=== PATIENT | male | born 1940 | race Caucasian/White ===

== ENCOUNTER 2017-04-07 17:19 | Emergency (ER) | payer MEDICARE ==
[2017-04-07] MEDS: NITROGLYCERIN 0.4 MG SUBL TABLET SL (18:24)
[2017-04-07] MEDS: ASPIRIN 81 MG CHEW TABLET PO (19:25)
[2017-04-07 19:43] LABS: BASO # 0.1 10^3/uL (0.0-0.2); BASO % 0.6 % (0.0-1.0); EOS # 0.3 10^3/uL (0.0-0.50); EOS % 3.1 % (0.0-3.0); HEMATOCRIT 37.8 % (42.0-52.0); HEMOGLOBIN 12.8 g/dl (14.0-18.0); IMMATURE GRANULOCYTE % 0.2 % (0-3.0); LYMPH # 1.9 10^3/uL (1.5-4.5); LYMPH % 20.5 % (24.0-44.0); MEAN CORPUSCULAR HEMOGLOBIN 30.4 pg (27.0-33.0); MEAN CORPUSCULAR HGB CONC 33.9 g/dl (32.0-36.5); MEAN CORPUSCULAR VOLUME 89.8 fl (80.0-96.0); MONO # 0.7 10^3/uL (0.0-0.8); MONO % 7.1 % (0.0-5.0); NEUTROPHILS # 6.5 10^3/uL (1.8-7.7); NEUTROPHILS % 68.5 % (36.0-66.0); PLATELET COUNT, AUTOMATED 268 10^3/uL (150-450); RED BLOOD COUNT 4.21 10^6/uL (4.30-6.10); RED CELL DISTRIBUTION WIDTH 11.9 % (11.5-14.5); WHITE BLOOD COUNT 9.5 10^3/uL (4.0-10.0)
[2017-04-07 20:02] LABS: PROTHROMBIN TIME 13.3 SECONDS (12.4-14.5)
[2017-04-07 20:06] LABS: ALBUMIN 4.3 GM/DL (3.2-5.2); ALBUMIN/GLOBULIN RATIO 1.39 (1.00-1.93); ALKALINE PHOSPHATASE 81 U/L (45-117); ALT/SGPT 28 U/L (12-78); ANION GAP 10 MEQ/L (8-16); AST/SGOT 22 U/L (7-37); BILIRUBIN,DIRECT 0.1 MG/DL (0.0-0.2); BILIRUBIN,TOTAL 0.5 MG/DL (0.2-1.0); BLOOD UREA NITROGEN 22 MG/DL (7-18); CALCIUM LEVEL 8.5 MG/DL (8.8-10.2); CARBON DIOXIDE LEVEL 29 MEQ/L (21-32); CHLORIDE LEVEL 102 MEQ/L (98-107); CPK CREATINE PHOSPHOKINASE 85 U/L (39-308); CREATININE FOR GFR 1.07 MG/DL (0.70-1.30); GLOMERULAR FILTRATION RATE > 60.0 (>42); GLUCOSE, FASTING 97 MG/DL (70-100); LIPASE 175 U/L (73-393); MAGNESIUM LEVEL 2.1 MG/DL (1.8-2.4); PHOSPHORUS LEVEL 3.2 MG/DL (2.5-4.9); POTASSIUM SERUM 4.2 MEQ/L (3.5-5.1); SODIUM LEVEL 141 MEQ/L (136-145); TOTAL PROTEIN 7.4 GM/DL (6.4-8.2); TROPONIN I < 0.02 NG/ML (< 0.10)
[2017-04-07 20:11] LABS: FREE T4 1.16 NG/DL (0.76-1.46); MB/CK RELATIVE INDEX 1.17 (< OR =4); THYROID STIMULATING HORMONE 0.473 uIU/ML (0.358-3.740)
[2017-04-07] MEDS ORDERED: ISOVUE-370 76% 100ML VIAL (Q9967) As Ordered (20:41)
[2017-04-07] MEDS: IBUPROFEN 600 MG TAB PO (22:38)
[2017-04-08 00:17] LABS: CPK CREATINE PHOSPHOKINASE 78 U/L (39-308); MB/CK RELATIVE INDEX 1.28 (< OR =4); TROPONIN I < 0.02 NG/ML (< 0.10)
== END 2017-04-08 01:13 | disposition home or self-care (01) ==
LOC: M ED 04-08 01:13
DX: M79.602 Pain in left arm (principal); I10 Essential (primary) hypertension; K21.9 Gastro-esophageal reflux disease without esophagitis; E07.9 Disorder of thyroid, unspecified; Z79.899 Other long term (current) drug therapy; Z87.09 Personal history of other diseases of the respiratory system
CPT/HCPCS: Q9967

== ENCOUNTER → 2018-04-01 | Outpatient (REF) | payer MEDICARE ==
[~2018-04-01] MED LIST: ALBU83IN NEB; AMIT25TA PO; ASPI1TAB21 PO; ATOR1TAB21 PO; COSO1SOL3; FINA5TAB2; FOSI20TA3 PO; HYDR12.55 PO; LISI-538 PO; METO1TAB7; METO200T28 PO; OMEP-218; OMEP40CA2 PO
[2018-04-01 18:45] LABS: APPEARANCE, URINE CLEAR (CLEAR); BACTERIA, URINE AUTO NEGATIVE (NEGATIVE); BILIRUBIN, URINE AUTO NEGATIVE (NEGATIVE); BLOOD, URINE BLOOD NEGATIVE (NEGATIVE); COLOR, URINE YELLOW (YELLOW); GLUCOSE, URINE (UA) AUTO NEGATIVE (NEGATIVE); KETONE, URINE AUTO NEGATIVE (NEGATIVE); LEUKOCYTE ESTERASE, URINE AUTO NEGATIVE (NEGATIVE); NITRITE, URINE AUTO NEGATIVE (NEGATIVE); PROTEIN, URINE AUTO NEGATIVE (NEGATIVE); RBC, URINE AUTO 0 /HPF (0-3); SPECIFIC GRAVITY URINE AUTO 1.013 (1.002-1.035); SQUAMOUS EPITHELIAL CELL UR AU 0 /HPF (0-6); UROBILINOGEN, URINE AUTO 0.2 mg/dL (0.0-2.0); WBC, URINE AUTO 1 /HPF (0-3)
== END ==
LOC: M SMT 17:24
PROVIDERS: ATTEND Nurse Practitioner Women's Health
DX: N40.0 Benign prostatic hyperplasia without lower urinary tract symptoms (principal)
CPT/HCPCS: 51798; 81001; 87086; G0463

== ENCOUNTER 2018-04-22 05:00 | Emergency (ER) | payer MEDICARE ==
[~2018-04-22] VITALS: Ht 167.6 cm; Wt 84.1 kg
[~2018-04-22 05:00] MED LIST changes: -ALBU83IN NEB; -ASPI1TAB21 PO; -COSO1SOL3; -FINA5TAB2; -FOSI20TA3 PO; -METO1TAB7; -OMEP-218
[2018-04-22] MEDS ORDERED: FOSI20TA3 PO (05:12)
[2018-04-22] MEDS ORDERED: COSO1SOL3 (05:12)
[2018-04-22] MEDS ORDERED: FINA5TAB2 (05:12)
[2018-04-22] MEDS ORDERED: OMEP-218 (05:12)
[2018-04-22] MEDS ORDERED: METO1TAB7 (05:12)
[2018-04-22] MEDS ORDERED: ASPI1TAB21 PO (05:14)
[2018-04-22] MEDS ORDERED: ALBU83IN NEB (06:00)
[2018-04-22 06:34] LABS: BASO # 0.1 10^3/uL (0.0-0.2); BASO % 0.9 % (0.0-1.0); EOS # 0.4 10^3/uL (0.0-0.50); EOS % 4.7 % (0.0-3.0); HEMATOCRIT 40.1 % (42.0-52.0); HEMOGLOBIN 13.2 g/dl (13.5-17.5); LYMPH # 1.6 10^3/uL (1.5-4.5); LYMPH % 19.5 % (24.0-44.0); MEAN CORPUSCULAR HEMOGLOBIN 30.6 pg (27.0-33.0); MEAN CORPUSCULAR HGB CONC 32.9 g/dl (32.0-36.5); MONO # 0.5 10^3/uL (0.0-0.8); MONO % 6.5 % (0.0-5.0); NEUTROPHILS # 5.4 10^3/uL (1.8-7.7); PLATELET COUNT, AUTOMATED 316 10^3/uL (150-450); RED BLOOD COUNT 4.31 10^6/uL (4.30-6.10); WHITE BLOOD COUNT 7.9 10^3/uL (4.0-10.0)
--- NOTE | 2018-04-22 06:34 | ECGEPIP ---
Stationary ECG Study [facility] - ED Test Date: 2018-04-22 Pat Name: SRI DUTTA Department: Room: - Gender: M [employer]er: KEILY : 1940 Requested By: MARISA Delaney PA-C Order Number: [id number] Reading MD: Alexx Vilchis Measurements Intervals [place] Rate: 58 P: 12 [place]: 163 QRS: -39 QRSD: 98 T: 30 QT: 429 QTc: 421 Interpretive Statements SINUS BRADYCARDIA MARKED LEFT AXIS DEVIATION INCOMPLETE RIGHT BUNDLE BRANCH BLOCK NONSPECIFIC ST T WAVE CHANGES CW 04/07/[address] T WAVE CHANGES Electronically Signed On 04-22-2018 6:34:25 EST by Alexx Vilchis
[2018-04-22 06:47] LABS: BLOOD UREA NITROGEN 15 MG/DL (7-18); CALCIUM LEVEL 8.3 MG/DL (8.8-10.2); CARBON DIOXIDE LEVEL 26 MEQ/L (21-32); CHLORIDE LEVEL 109 MEQ/L (98-107); CPK CREATINE PHOSPHOKINASE 103 U/L (39-308); CREATININE FOR GFR 1.08 MG/DL (0.70-1.30); FREE T4 1.11 NG/DL (0.76-1.46); GLOMERULAR FILTRATION RATE > 60.0 (>42); GLUCOSE, FASTING 104 MG/DL (70-100); MAGNESIUM LEVEL 2.1 MG/DL (1.8-2.4); MB/CK RELATIVE INDEX 1.55 (< OR =4); POTASSIUM SERUM 4.3 MEQ/L (3.5-5.1); SODIUM LEVEL 143 MEQ/L (136-145); TROPONIN I < 0.02 NG/ML (< 0.10)
--- NOTE | 2018-04-22 06:49 | REPVR ---
EXAM: CT Head Without Contrast EXAM DATE/TIME: 04/22/2018 6:35 AM CLINICAL HISTORY: 78 years old, male; Signs and symptoms; Other: Tremors; Additional info: Intermittent tremors TECHNIQUE: Axial computed tomography images of the head/brain without contrast. All CT scans at this facility use at least one of these dose optimization techniques: automated exposure control; mA and/or kV adjustment per patient size (includes targeted exams where dose is matched to clinical indication); or iterative reconstruction. COMPARISON: MRI-Brain without Contrast 12/20/2015 2:49 PM FINDINGS: Brain: There is no acute intracranial abnormality. Mild prominence of ventricles and sulci representing volume loss. Mild small vessel ischemic changes are seen. There is no mass, midline shift, or mass effect. Rai-white matter differentiation is preserved. There is no evidence of hemorrhage. There is no extra-axial fluid collection. Basal cisterns are patent. 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 Ventricles: See Brain Finding. Bones/joints: The visualized osseous structures are unremarkable. Sinuses: Mild mucosal thickening of ethmoidal air cells. Mastoid air cells: Mastoid air cells are clear. Soft tissues: Unremarkable. IMPRESSION: 1. Mild volume loss and small vessel ischemic changes. . 2. No acute intracranial abnormality. Electronically signed by: Irasema Sapp On 04/22/2018 06:49:01 AM
[2018-04-22 07:01] VITALS: BP 153/72
[2018-04-22 07:04] LABS: INFLUENZA A AMPLIFICATION NEGATIVE (NEGATIVE); INFLUENZA B AMPLIFICATION NEGATIVE (NEGATIVE)
--- NOTE | 2018-04-22 07:09 | REP ---
Clinical: Chest palpitations. Comparison: 04/07/2017. Findings: The mediastinum and cardiac silhouette are stable and within normal limits for portable technique. The lung matos are clear without acute consolidation, effusion, or pneumothorax. Skeletal structures are intact. Impression: No acute cardiopulmonary process appreciated. Electronically Signed by Myron Willson MD 04/22/2018 07:00 A
== END 2018-04-22 07:22 | disposition home or self-care (01) ==
LOC: M ED 05:00
DX: R25.1 Tremor, unspecified (principal); R51 Headache; R00.1 Bradycardia, unspecified; I45.10 Unspecified right bundle-branch block; I67.82 Cerebral ischemia; I10 Essential (primary) hypertension; E78.5 Hyperlipidemia, unspecified; F32.9 Major depressive disorder, single episode, unspecified; K21.9 Gastro-esophageal reflux disease without esophagitis; J47.9 Bronchiectasis, uncomplicated; Z79.899 Other long term (current) drug therapy; Z79.82 Long term (current) use of aspirin

== ENCOUNTER → 2018-05-16 | Outpatient (REF) | payer MEDICARE ==
[~2018-05-16] MED LIST changes: +ALBU83IN NEB; +ASPI1TAB21 PO; +COSO1SOL3; +FINA5TAB2; +FOSI20TA3 PO; +METO1TAB7; +OMEP-218
[2018-05-17 18:05] LABS: CA19-9 TUMOR MARKER,CARBOHYDRA 7.1 U/ML (<35.0)
== END ==
LOC: M LAB REF 12:23
PROVIDERS: ATTEND Nurse Practitioner Adult Health
DX: R61 Generalized hyperhidrosis (principal); E03.9 Hypothyroidism, unspecified

== ENCOUNTER → 2018-05-20 | Outpatient (REF) | payer MEDICARE ==
[2018-05-24 00:06] LABS: DOPAMINE TOTAL URINE 170 ug/L (Undefined); EPINEPHRINE TOTAL URINE 4 ug/L (Undefined); METANEPHRINE TOTAL URINE 114 ug/L (Undefined); NOREPINEPHRINE TOTAL URINE 47 ug/L (Undefined); NORMETANEPHRINE TOTAL URINE 291 ug/L (Undefined)
== END ==
LOC: M LAB REF 11:33
PROVIDERS: ATTEND Nurse Practitioner Adult Health
DX: I10 Essential (primary) hypertension (principal)

== ENCOUNTER → 2018-06-10 | Outpatient (REF) | payer MEDICARE ==
[~2018-06-10] MED LIST changes: -FOSI20TA3 PO; +FOSI20TA60 PO
== END ==
LOC: M LAB REF 12:12
PROVIDERS: ATTEND Nurse Practitioner Adult Health
DX: E03.9 Hypothyroidism, unspecified (principal)

== ENCOUNTER → 2018-06-27 | Outpatient (REF) | payer MEDICARE ==
[2018-06-27 13:29] LABS: BASO # 0.1 10^3/uL (0.0-0.2); BASO % 0.6 % (0.0-1.0); EOS # 0.3 10^3/uL (0.0-0.50); EOS % 3.7 % (0.0-3.0); HEMATOCRIT 38.3 % (42.0-52.0); HEMOGLOBIN 12.4 g/dl (13.5-17.5); LYMPH # 1.6 10^3/uL (1.5-4.5); MEAN CORPUSCULAR HEMOGLOBIN 30.8 pg (27.0-33.0); MEAN CORPUSCULAR HGB CONC 32.4 g/dl (32.0-36.5); MEAN CORPUSCULAR VOLUME 95.3 fl (80.0-96.0); MONO # 0.7 10^3/uL (0.0-0.8); MONO % 8.3 % (0.0-5.0); NEUTROPHILS # 5.3 10^3/uL (1.8-7.7); PLATELET COUNT, AUTOMATED 312 10^3/uL (150-450); RED BLOOD COUNT 4.02 10^6/uL (4.30-6.10); WHITE BLOOD COUNT 7.9 10^3/uL (4.0-10.0)
[2018-06-27 13:41] LABS: ALBUMIN 4.1 GM/DL (3.2-5.2); ALT/SGPT 29 U/L (12-78); BILIRUBIN,TOTAL 0.6 MG/DL (0.2-1.0); BLOOD UREA NITROGEN 21 MG/DL (7-18); CALCIUM LEVEL 8.7 MG/DL (8.8-10.2); CARBON DIOXIDE LEVEL 29 MEQ/L (21-32); CHLORIDE LEVEL 102 MEQ/L (98-107); CREATININE FOR GFR 0.97 MG/DL (0.70-1.30); FOLATE 21.4 NG/ML; GLOMERULAR FILTRATION RATE > 60.0 (>42); GLUCOSE, FASTING 95 MG/DL (70-100); RHEUMATOID FACTOR QUANT < 10.0 IU/ML (<15.0); SODIUM LEVEL 138 MEQ/L (136-145); THYROID STIMULATING HORMONE 0.318 uIU/ML (0.358-3.740); TOTAL PROTEIN 7.1 GM/DL (6.4-8.2); VITAMIN B12 LEVEL 357 PG/ML
[2018-06-27 14:07] LABS: ERYTHROCYTE SEDIMENTATION RATE 21 mm/hr (0-20)
[2018-06-27 14:42] LABS: HEMOGLOBIN A1c 6.6 %
[2018-07-02 00:06] LABS: CERULOPLASMIN 21.2 mg/dL (16.0-31.0); VITAMIN B1 LEVEL WHOLE BLOOD 115.1 nmol/L (66.5-200.0)
[2018-07-02 10:45] LABS: ALBUMIN % 57.7 % (55.8-66.1); ALPHA-1-GLOBULIN % 4.6 % (2.9-4.9); ALPHA-1-GLOBULINS 0.33 GM/DL (0.17-0.41); ALPHA-2-GLOBULINS % 12.2 % (7.1-11.8); BETA-1-GLOBULINS % 6.4 % (4.7-7.2); BETA-2-GLOBULINS % 6.1 % (3.2-6.5)
[2018-07-02 10:46] LABS: ALPHA-2-GLOBULINS 0.87 GM/DL (0.42-0.99); BETA-1-GLOBULINS 0.45 GM/DL (0.28-0.60); BETA-2-GLOBULINS 0.43 GM/DL (0.19-0.55); GAMMA GLOBULINS 0.92 GM/DL (0.65-1.58)
[2018-07-02 11:43] LABS: DRVV SCREEN 36.6 SEC
[2018-07-02 11:50] LABS: PTT LUPUS TYPE ANTICOAG SCREEN 0.9 (0-1.2)
[2018-07-02 14:16] LABS: ANCA-ATYPICAL <1:20 titer (Neg:<1:20); ANTINUCLEAR ANTIBODIES DIRECT Negative (Negative); COPPER PLASMA 94 ug/dL (72-166); CYTOPLASMIC NEUTROP AB ANCA-C <1:20 titer (Neg:<1:20); LEAD BLOOD ADULT <1 ug/dL (0-4); MERCURY LEVEL None Detected ug/L (0.0-14.9); PERINUCLEAR AB ANCA-P <1:20 titer (Neg:<1:20); SJOGREN'S ANTI SS-A <0.2 AI (0.0-0.9); SJOGREN'S ANTI SS-B <0.2 AI (0.0-0.9)
[2018-07-04 14:14] LABS: ANTI DS-DNA AB <1:10 titer (.); VITAMIN E(GAMMA TOCOPHEROL) 0.6 mg/L (0.5-4.9)
== END ==
LOC: M LABNEURO 09:28
PROVIDERS: ATTEND Psychiatry & Neurology Neurology
DX: R25.1 Tremor, unspecified (principal); G62.9 Polyneuropathy, unspecified

== ENCOUNTER → 2019-04-14 | Outpatient (REF) | payer MEDICARE ==
[~2019-04-14] MED LIST changes: -ASPI1TAB21 PO; +ASPI325T58 PO; -OMEP40CA2 PO; +OMEP40CA97 PO
[2019-04-14 14:14] LABS: APPEARANCE, URINE CLEAR (CLEAR); BACTERIA, URINE AUTO NEGATIVE (NEGATIVE); BILIRUBIN, URINE AUTO NEGATIVE (NEGATIVE); BLOOD, URINE BLOOD NEGATIVE (NEGATIVE); COLOR, URINE YELLOW (YELLOW); GLUCOSE, URINE (UA) AUTO NEGATIVE (NEGATIVE); KETONE, URINE AUTO NEGATIVE (NEGATIVE); LEUKOCYTE ESTERASE, URINE AUTO NEGATIVE (NEGATIVE); NITRITE, URINE AUTO NEGATIVE (NEGATIVE); PROTEIN, URINE AUTO NEGATIVE (NEGATIVE); RBC, URINE AUTO 0 /HPF (0-3); SPECIFIC GRAVITY URINE AUTO 1.015 (1.002-1.035); SQUAMOUS EPITHELIAL CELL UR AU 0 /HPF (0-6); UROBILINOGEN, URINE AUTO 0.2 mg/dL (0.0-2.0); WBC, URINE AUTO 0 /HPF (0-3)
== END ==
LOC: M SMT 13:20
PROVIDERS: ATTEND Nurse Practitioner Women's Health
DX: R10.2 Pelvic and perineal pain (principal)
CPT/HCPCS: 81001; 87086; G0463

== ENCOUNTER → 2019-10-13 | Outpatient (REF) | payer MEDICARE ==
[2019-10-13 18:58] LABS: FOLATE 13.6 NG/ML; VITAMIN B12 LEVEL 373 PG/ML
== END ==
LOC: M LAB REF 17:25
PROVIDERS: ATTEND Internal Medicine
DX: R41.3 Other amnesia (principal)

== ENCOUNTER → 2020-01-14 | Outpatient (REF) | payer MEDICARE ==
[2020-01-14 13:51] LABS: APPEARANCE, URINE CLEAR (CLEAR); BACTERIA, URINE AUTO NEGATIVE (NEGATIVE); BILIRUBIN, URINE AUTO NEGATIVE (NEGATIVE); BLOOD, URINE BLOOD NEGATIVE (NEGATIVE); COLOR, URINE YELLOW (YELLOW); GLUCOSE, URINE (UA) AUTO NEGATIVE (NEGATIVE); KETONE, URINE AUTO NEGATIVE (NEGATIVE); LEUKOCYTE ESTERASE, URINE AUTO NEGATIVE (NEGATIVE); MUCUS, URINE SMALL (NEGATIVE); NITRITE, URINE AUTO NEGATIVE (NEGATIVE); PROTEIN, URINE AUTO NEGATIVE (NEGATIVE); RBC, URINE AUTO 0 /HPF (0-3); SPECIFIC GRAVITY URINE AUTO 1.014 (1.002-1.035); SQUAMOUS EPITHELIAL CELL UR AU 0 /HPF (0-6); UROBILINOGEN, URINE AUTO 0.2 mg/dL (0.0-2.0); WBC, URINE AUTO 0 /HPF (0-3)
== END ==
LOC: M SMT 12:51
PROVIDERS: ATTEND Nurse Practitioner Women's Health
DX: R35.0 Frequency of micturition (principal)
CPT/HCPCS: 51798; 81001; 87086; G0463

== ENCOUNTER → 2020-10-13 | Outpatient (REF) | payer MEDICARE ==
[~2020-10-13] MED LIST changes: -AMIT25TA PO; +AMIT25TA17 PO; -LISI-538 PO; +LISI20TA33 PO; +OMEP40CA4 PO; -OMEP40CA97 PO
[2020-10-13 18:04] LABS: TOTAL PROTEIN 7.3 GM/DL (6.4-8.2)
[2020-10-13 18:12] LABS: VITAMIN B12 LEVEL 353 PG/ML (247-911)
[2020-10-14 10:27] LABS: ALBUMIN 4.37 GM/DL (3.29-5.55); ALBUMIN % 59.8 % (55.8-66.1); ALPHA-1-GLOBULIN % 4.3 % (2.9-4.9); ALPHA-1-GLOBULINS 0.31 GM/DL (0.17-0.41); ALPHA-2-GLOBULINS 0.85 GM/DL (0.42-0.99); ALPHA-2-GLOBULINS % 11.7 % (7.1-11.8); BETA-1-GLOBULINS 0.42 GM/DL (0.28-0.60); BETA-1-GLOBULINS % 5.8 % (4.7-7.2); BETA-2-GLOBULINS 0.39 GM/DL (0.19-0.55); BETA-2-GLOBULINS % 5.3 % (3.2-6.5); GAMMA GLOBULIN % 13.1 % (11.1-18.8); GAMMA GLOBULINS 0.96 GM/DL (0.65-1.58)
== END ==
LOC: M LAB REF 16:44
PROVIDERS: ATTEND Internal Medicine
DX: G60.9 Hereditary and idiopathic neuropathy, unspecified (principal)

== ENCOUNTER → 2021-07-05 | Outpatient (REF) | payer MEDICARE ==
[~2021-07-05] MED LIST changes: +OMEP-173; -OMEP-218
== END ==
LOC: M LAB REF 12:46
PROVIDERS: ATTEND Internal Medicine
DX: R26.89 Other abnormalities of gait and mobility (principal)

== ENCOUNTER → 2021-07-28 | Outpatient (CLI) | payer MEDICARE ==
[~2021-07-28] MED LIST changes: +ALBU2.5V10 NEB; -ALBU83IN NEB
== END ==
LOC: M EKG 09:46
PROVIDERS: ATTEND Internal Medicine
DX: R00.2 Palpitations (principal)

== ENCOUNTER → 2022-03-09 | Outpatient (CLI) | payer MEDICARE | LOC: M WUC 10:50 | PROVIDERS: ATTEND Physician Assistant Medical | DX: R05.9 Cough, unspecified (principal) ==

== ENCOUNTER 2022-10-01 18:40 | Emergency (ER) | payer MEDICARE ==
[~2022-10-01] VITALS: Ht 167.6 cm; Wt 85.2 kg
[~2022-10-01 18:40] MED LIST changes: -AMIT25TA17 PO; +AMIT25TA19 PO; -COSO1SOL3; +DORZ10DR10; -METO1TAB7; +METO1TAB7 PO
[2022-10-01] MEDS ORDERED: ESOM40CA35 (18:56)
[2022-10-01] MEDS ORDERED: TRAZ1TAB11 (18:56)
[2022-10-01] MEDS ORDERED: CHLO125TA PO (18:56)
[2022-10-01] MEDS ORDERED: FOSI10TA (18:56)
[2022-10-01] MEDS ORDERED: ASPI81CH33 PO (18:56)
[2022-10-01] MEDS ORDERED: DORZ2SOL5 (18:56)
[2022-10-01] MEDS ORDERED: TAMS1CAP17 (18:56)
[2022-10-01 19:52] LABS: BASO # 0.1 10^3/uL (0.0-0.2); BASO % 0.9 % (0.0-1.0); EOS # 0.7 10^3/uL (0.0-0.5); EOS % 8.3 % (0.0-3.0); HEMATOCRIT 37.6 % (42.0-52.0); HEMOGLOBIN 12.5 g/dl (13.5-17.5); LYMPH # 1.9 10^3/uL (1.5-5.0); LYMPH % 24.1 % (24.0-44.0); MEAN CORPUSCULAR HEMOGLOBIN 30.5 pg (27.0-33.0); MEAN CORPUSCULAR HGB CONC 33.2 g/dl (32.0-36.5); MEAN CORPUSCULAR VOLUME 91.7 fl (80.0-96.0); MONO # 0.8 10^3/uL (0.0-0.8); MONO % 9.6 % (2.0-8.0); NEUTROPHILS # 4.5 10^3/uL (1.5-8.5); NEUTROPHILS % 56.8 % (36.0-66.0); PLATELET COUNT, AUTOMATED 295 10^3/uL (150-450); WHITE BLOOD COUNT 7.9 10^3/uL (4.0-10.0)
[2022-10-01 20:24] LABS: CALCIUM LEVEL 8.8 MG/DL (8.3-10.6); CK-MB VALUE MASS 1.8 NG/ML (<3.6); CREATININE FOR GFR 1.28 MG/DL (0.70-1.30); GLOMERULAR FILTRATION RATE 57.3 (>35); MB/CK RELATIVE INDEX 1.83 (< OR =4); POTASSIUM SERUM 3.8 MMOL/L (3.5-5.1); THYROID STIMULATING HORMONE 0.95 uIU/ML (0.55-4.78)
[2022-10-01 20:27] LABS: FREE T4 1.19 NG/DL (0.89-1.76)
[2022-10-01 21:35] LABS: CK-MB VALUE MASS < 1.0 NG/ML (<3.6)
[2022-10-01 21:36] LABS: CPK CREATINE PHOSPHOKINASE 92 U/L (46-171); MB/CK RELATIVE INDEX 1.08 (< OR =4)
[2022-10-01] MEDS ORDERED: HOLTER MONITOR XX ×2 (22:37→22:38)
[2022-10-01 23:02] VITALS: BP 124/71; TEMP 98.4; O2SAT 96
== END 2022-10-01 23:05 | disposition home or self-care (01) ==
LOC: M ED 18:40
DX: R00.2 Palpitations (principal); I11.9 Hypertensive heart disease without heart failure; I25.10 Atherosclerotic heart disease of native coronary artery without angina pectoris; G56.90 Unspecified mononeuropathy of unspecified upper limb; Z85.820 Personal history of malignant melanoma of skin; Z79.899 Other long term (current) drug therapy; Z79.82 Long term (current) use of aspirin; Z79.51 Long term (current) use of inhaled steroids

== ENCOUNTER → 2022-10-03 | Outpatient (CLI) | payer MEDICARE ==
[~2022-10-03] MED LIST changes: +ASPI81CH33 PO; +CHLO125TA PO; +DORZ2SOL5; +ESOM40CA35; +FOSI10TA; +HOLTER MONITOR XX; +TAMS1CAP17; +TRAZ1TAB11
== END ==
LOC: M EKG 09:49
PROVIDERS: ATTEND Emergency Medicine
DX: R00.2 Palpitations (principal)

== ENCOUNTER → 2022-10-12 | Outpatient (CLI) | payer MEDICARE | LOC: M PLARAD 13:20 | PROVIDERS: ATTEND Internal Medicine | DX: R42 Dizziness and giddiness (principal); R55 Syncope and collapse ==

== ENCOUNTER → 2023-08-25 | Outpatient (CLI) | payer MEDICARE ==
[~2023-08-25] MED LIST changes: +METO200T15 PO; -METO200T28 PO
== END ==
LOC: M EKG 10:00
PROVIDERS: ATTEND Physician Assistant
DX: R00.2 Palpitations (principal); R42 Dizziness and giddiness

== ENCOUNTER → 2023-12-03 | Outpatient (REF) | payer MEDICARE | LOC: M LAB REF 16:08 | PROVIDERS: ATTEND Internal Medicine | DX: G62.9 Polyneuropathy, unspecified (principal) ==

== ENCOUNTER → 2024-12-02 | Outpatient (CLI) | payer MEDICARE | LOC: M RAD 11:31 | PROVIDERS: ATTEND Internal Medicine | DX: Z01.31 Encounter for examination of blood pressure with abnormal findings (principal); R09.89 Other specified symptoms and signs involving the circulatory and respiratory systems ==

== ENCOUNTER → 2025-01-01 | Outpatient (CLI) | payer MEDICARE | LOC: M PLAIMG 14:31 | PROVIDERS: ATTEND Internal Medicine | DX: I35.1 Nonrheumatic aortic (valve) insufficiency (principal) ==

== ENCOUNTER → 2025-01-27 | Outpatient (REF) | payer MEDICARE ==
[2025-01-30 15:32] LABS: ALMOND IGE FOOD < 0.10 kU/L (<0.10); BRAZIL NUT CLASS IGE <0.10 ABSENT (<0.10); BRAZIL NUT IGE < 0.10 kU/L (<0.10); CASHEW NUT IGE FOOD < 0.10 kU/L (<0.10); CODFISH IGE FOOD < 0.10 kU/L (<0.10); COWS MILK FOOD < 0.10 kU/L (<0.10); EGG WHITE FOOD < 0.1 kU/L (<0.10); HAZELNUT IGE FOOD < 0.10 kU/L (<0.10); MACADAMIA NUT CLASS IGE <0.10 ABSENT (<0.10); PEANUT IGE FOOD < 0.10 kU/L (<0.10); SALMON IGE FOOD < 0.10 kU/L (<0.10); SCALLOP IGE FOOD < 0.10 kU/L (<0.10); SESAME SEED IGE FOOD < 0.10 kU/L (<0.10); SHRIMP IGE FOOD < 0.10 kU/L (<0.10); SOYBEAN IGE FOOD < 0.10 kU/L (<0.10); TUNA IGE FOOD < 0.10 kU/L (<0.10); WALNUT IGE FOOD < 0.10 kU/L (<0.10); WHEAT IGE FOOD < 0.10 kU/L (<0.10)
== END ==
LOC: M LAB REF 13:49
PROVIDERS: ATTEND Internal Medicine
DX: K22.70 Barrett's esophagus without dysplasia (principal); K59.00 Constipation, unspecified